=== PATIENT | male | born 1990 | race Caucasian/White ===

== ENCOUNTER → 2016-12-02 | Outpatient (CLI) | payer BC ==
--- NOTE | 2016-12-07 18:22 | SLEEPHOME ---
DATE OF PROCEDURE: 11/01/2016 ORDERED BY: Ximena Lassiter Diagnostic home sleep testing was performed for evaluation of sleep apnea syndrome symptoms in this patient with a history of excessive somnolence. 10 hours and 59 minutes of data were reviewed of these 6 hours and 59 minutes was marked as time in bed. During the interval marked time in bed. During the interval marked time in bed there were only three respiratory events identified of 10 seconds in duration or greater for an apnea hypopnea index of 0.4 within normal limits. Patient baseline pulse rate was 61 beats per minute. The patient's baseline oxygen saturation was 92%. The lowest oxygen saturation 91%. Testing was performed in primarily the supine for a period of time and nonsupine position. IMPRESSION: Normal home sleep testing. No evidence of obstructive sleep apnea syndrome demonstrated.
== END ==
LOC: M SLEEP HO 08:04
PROVIDERS: ATTEND Nurse Practitioner Adult Health
DX: Z71.1 Person with feared health complaint in whom no diagnosis is made (principal)